=== PATIENT | male | born 1970 | race African-American/Black ===

== ENCOUNTER 2021-01-20 16:35 | Emergency (ER) | payer OTHER ==
[2021-01-20 16:50] VITALS: BP 133/84; PULSE 71; TEMP 98; BMI 27.1
== END 2021-01-20 17:32 | disposition home or self-care (01) ==
LOC: JERFT 16:35
DX: Z04.3 Encounter for examination and observation following other accident (principal); Y09 Assault by unspecified means; Y92.9 Unspecified place or not applicable
CPT/HCPCS: 99282-25